=== PATIENT | female | born 1980 | race Caucasian/White ===

== ENCOUNTER 2017-09-07 22:28 | Emergency (ER) | payer BC ==
[~2017-09-07] VITALS: Ht 162.6 cm; Wt 97.5 kg
[2017-09-07 22:32] VITALS: BP 146/93
--- NOTE | 2017-09-07 22:37 | NUR ---
36Y F BIB FAMILY C/O NUMBNESS LEFT SIDE OF FACE. OFF/ON SINCE Aug.20. SEEN AT URGENT CARE ON 08/24-CT WAS DONE. PT STATES SHE FEELS NUMBNESS OFF/ON ON HER LEFT SIDE OF HER BODY SINCE. PT DENIES ANY N/V/D,SOB, CP AT THE MOMENT MED HX: NONE
--- NOTE | 2017-09-07 23:14 | NUR ---
LAB AT BEDSIDE
[2017-09-07] MEDS ORDERED: SUMAtriptan 25 MG TAB PO ONE (23:15)
[2017-09-07] MEDS ORDERED: KETOROLAC 30 MG/ML VIAL IM ONE (23:15)
[2017-09-07 23:28] LABS: BASOPHILS # (AUTO) 0.3 K/uL (0.00-0.22); EOSINOPHILS # (AUTO) 0.1 K/uL (0-0.4); EOSINOPHILS % (AUTO) 1.6 % (0.0-4.0); HEMATOCRIT 39.5 % (36-48); HEMOGLOBIN 13.3 g/dL (12.0-16.0); LYMPHOCYTES # (AUTO) 2.7 K/uL (2.5-16.5); LYMPHOCYTES % (AUTO) 32.8 % (20.5-51.1); MEAN CORPUSCULAR HEMOGLOBIN 27 pg (27-31); MEAN CORPUSCULAR HGB CONC 34 g/dL (33-37); MEAN CORPUSCULAR VOLUME 81 fL (80-94); MONOCYTES # (AUTO) 0.5 K/uL (0.8-1.0); MONOCYTES % (AUTO) 6.2 % (1.7-9.3); NEUTROPHILS # (AUTO) 4.7 K/uL (1.8-7.7); NEUTROPHILS % (AUTO) 55.4 % (42.2-75.2); PLATELET COUNT (AUTO) 186 K/uL (140-450); RED BLOOD CELL COUNT(AUTO) 4.87 MIL/uL (4.20-5.40); RED CELL DISTRIBUTION WIDTH 13.2 % (11.6-13.7); WHITE BLOOD COUNT (AUTO) 8.3 K/uL (4.8-10.8)
[2017-09-07 23:57] LABS: ALBUMIN 3.9 g/dL (3.4-5.0); ANION GAP 16.3 (8-16); CARBON DIOXIDE 25.1 mmol/L (21-32); CREATININE 0.7 mg/dL (0.6-1.3); POTASSIUM 3.4 mmol/L (3.5-5.1); TOTAL BILIRUBIN 0.7 mg/dL (0.0-1.0)
[2017-09-08 00:09] LABS: BARBITURATE, URINE POS. ng/ml (NEG <=200); BENZODIAZEPINE, URINE NEG. ng/mL (NEG <=200); CANNABINOID, URINE NEG. ng/mL (NEG <=50); COCAINE, URINE NEG. ng/mL (NEG <=300); OPIATE, URINE NEG. ng/mL (NEG <=2000); PHENCYCLIDINE SCREEN,URINE NEG. ng/mL (NEG <=25)
[2017-09-08 00:12] LABS: APPEARANCE,URINE CLEAR (CLEAR); BILIRUBIN,URINE NEGATIVE (NEGATIVE); BLOOD, URINE NEGATIVE (NEGATIVE); COLOR,URINE YELLOW (YELLOW); LEUKOCYTE ESTERASE ,URINE NEGATIVE (NEGATIVE); NITRITE, URINE NEGATIVE (NEGATIVE); UGLUCOSE NEGATIVE (NEGATIVE)
[2017-09-08 00:34] VITALS: BP 155/88
== END 2017-09-08 00:34 | disposition home or self-care (01) ==
LOC: MED 22:28
DX: R20.0 Anesthesia of skin (principal); E87.6 Hypokalemia; R51 Headache; R03.0 Elevated blood-pressure reading, without diagnosis of hypertension
CPT/HCPCS: 36415; 70450; 71045; 80053; 80305; 81003; 84484; 85025; 93005; 96372; 99285; J1885; 81025

== ENCOUNTER 2018-10-07 00:42 | Emergency (ER) | payer BC ==
[~2018-10-07] VITALS: Ht 162.6 cm; Wt 90.7 kg
[2018-10-07 00:48] VITALS: BP 132/87
--- NOTE | 2018-10-07 00:48 | NUR ---
PT TAKEN TO BED 4
--- NOTE | 2018-10-07 01:10 | NUR ---
Dr. Anthony evaluating patient at bedside.
--- NOTE | 2018-10-07 01:14 | NUR ---
Pt bib self c/o L chest pain aching 7/10 radiating down L arm x 1 week, and facial tingling/numbness. denies NVD, SOB. No murmurs present. Respirations even and unlabored, clear lung sounds bilat throughout. Place on cardiorespiratory monitor, bed in low position. EDMD aware of pt status.
--- NOTE | 2018-10-07 01:15 | NUR ---
Report to Janusz PRICE
[2018-10-07 01:56] LABS: BASOPHILS % (AUTO) 0.5 % (0.0-2.0); EOSINOPHILS # (AUTO) 0.2 K/uL (0-0.4); HEMATOCRIT 38.3 % (36-48); HEMOGLOBIN 13.2 g/dL (12.0-16.0); LYMPHOCYTES # (AUTO) 2.9 K/uL (2.5-16.5); LYMPHOCYTES % (AUTO) 34.1 % (20.5-51.1); MEAN CORPUSCULAR HEMOGLOBIN 27 pg (27-31); MEAN CORPUSCULAR HGB CONC 34 g/dL (33-37); MEAN CORPUSCULAR VOLUME 79.6 fL (80-94); MONOCYTES # (AUTO) 0.4 K/uL (0.8-1.0); MONOCYTES % (AUTO) 5.2 % (1.7-9.3); NEUTROPHILS # (AUTO) 4.9 K/uL (1.8-7.7); NEUTROPHILS % (AUTO) 58.2 % (42.2-75.2); PLATELET COUNT (AUTO) 183 K/uL (140-450); RED BLOOD CELL COUNT(AUTO) 4.81 MIL/uL (4.20-5.40); RED CELL DISTRIBUTION WIDTH 13.9 % (11.6-13.7); WHITE BLOOD COUNT (AUTO) 8.4 K/uL (4.8-10.8)
[2018-10-07 02:04] LABS: ANION GAP 13.3 (8-16); CARBON DIOXIDE 27.7 mmol/L (21-32); CREATININE 0.7 mg/dL (0.6-1.3)
[2018-10-07 02:09] LABS: ALBUMIN 3.4 g/dL (3.4-5.0); TOTAL BILIRUBIN 0.4 mg/dL (0.0-1.0)
[2018-10-07 02:31] LABS: CREATINE KINASE MB 0.4 ng/mL (0-3.6)
[2018-10-07 04:06] VITALS: BP 132/87
== END 2018-10-07 04:07 | disposition home or self-care (01) ==
LOC: MED 00:42
DX: R07.89 Other chest pain (principal); R06.02 Shortness of breath
CPT/HCPCS: 36415; 71045; 80053; 81002; 82550; 82553; 83690; 84484; 85025; 93005; 99284; Q0092

== ENCOUNTER 2019-09-24 08:43 | Emergency (ER) | payer BC, OTHER ==
[~2019-09-24] VITALS: Ht 163.8 cm; Wt 103.0 kg
[2019-09-24 08:47] VITALS: BP 138/90
--- NOTE | 2019-09-24 08:52 | NUR ---
Amb to bed 08 with steady gait
--- NOTE | 2019-09-24 08:53 | NUR ---
Notifed Dr Covington of pt c/o
--- NOTE | 2019-09-24 09:02 | NUR ---
Dr. Covington is evaluating the patient at bedside.
--- NOTE | 2019-09-24 09:12 | NUR ---
38 YRS OLD FEMALE C/O CHEST PAIN X 1 WEEK ACCOMPANIED BY LEFT FACIAL TINGLING. V/S WNL. BED IN LOWEST POSITION, SIDE RAIL UP X1. WILL CONTINUE TO MONITOR.
--- NOTE | 2019-09-24 09:17 | NUR ---
XRAY AT BEDSIDE
--- NOTE | 2019-09-24 09:20 | NUR ---
Patient taken to CT scan via gurney by CDP.
--- NOTE | 2019-09-24 10:37 | NUR ---
PT RESTING IN BED, SIDE RAIL X1
[2019-09-24 10:46] VITALS: BP 127/68
--- NOTE | 2019-09-24 10:47 | NUR ---
Patient discharged with v/s stable. Written and verbal after care instructions given and explained. Patient alert, oriented and verbalized understanding of instructions. Ambulatory with steady gait. All questions addressed prior to discharge. ID band removed. Patient advised to follow up with PMD. Rx of VALIUM given. Patient educated on indication of medication including possible reaction and side effects. Opportunity to ask questions provided and answered.
== END 2019-09-24 10:47 | disposition home or self-care (01) ==
LOC: MED 08:43
DX: R51 Headache (principal); F41.9 Anxiety disorder, unspecified
CPT/HCPCS: 70450; 71045; 93005; 99284; Q0092